=== PATIENT | female | born 1965 | race Caucasian/White ===

== ENCOUNTER 2020-06-03 10:43 | Emergency (ER) | payer OTHER ==
[~2020-06-03] VITALS: Ht 170.2 cm; Wt 69.0 kg
[2020-06-03] MEDS ORDERED: diphenhdrAMINE HCL 50 MG/1 ML VL IM ONE (11:30)
[2020-06-03] MEDS ORDERED: methylPREDNISolone SOD SUCC 125 MG/2 ML VL IM ONE (11:30)
[2020-06-03 12:04] VITALS: BP 124/90
== END 2020-06-03 12:26 | disposition home or self-care (01) ==
LOC: ER 10:43
DX: L25.9 Unspecified contact dermatitis, unspecified cause (principal); B86 Scabies
CPT/HCPCS: 96372; 99284; J1200; J2930

== ENCOUNTER 2020-06-09 08:26 | Emergency (ER) | payer OTHER ==
[~2020-06-09] VITALS: Ht 170.2 cm; Wt 68.0 kg
[2020-06-09 08:42] VITALS: BP 135/93
[2020-06-09] MEDS ORDERED: EPINEPHrine HCL 1 MG/1 ML AMP SC ONE (09:15)
[2020-06-09] MEDS ORDERED: methylPREDNISolone SOD SUCC 125 MG/2 ML VL IM ONE (09:15)
[2020-06-09] MEDS ORDERED: diphenhdrAMINE HCL 50 MG/1 ML VL IM ONE (09:30)
== END 2020-06-09 09:53 | disposition home or self-care (01) ==
LOC: ER 08:26
DX: L23.9 Allergic contact dermatitis, unspecified cause (principal)
CPT/HCPCS: 96372; 99284; J0171; J1200; J2930